=== PATIENT | female | born 1985 | race African-American/Black ===

== ENCOUNTER 2019-05-03 19:02 | Emergency (ER) | payer MEDICARE, MEDICAID ==
[~2019-05-03] VITALS: Ht 152.4 cm; Wt 72.6 kg
[2019-05-03 19:54] LABS: Urine Bacteria NONE SEEN /hpf (None Seen); Urine Blood Negative /uL (Negative); Urine Mucus FEW (None Seen); Urine WBC 1 /hpf (0 - 5)
[2019-05-03] MEDS ORDERED: cefTRIAXone SOD 1,000 MG VL IM ONE (20:45)
[2019-05-03] MEDS ORDERED: PHENAZOPYRIDINE HCL 100 MG TAB PO ONE (20:45)
[2019-05-03] MEDS ORDERED: FLUCONAZOLE 100 MG TAB PO ONE (20:45)
[2019-05-03 20:50] VITALS: BP 109/82
== END 2019-05-03 21:06 | disposition home or self-care (01) ==
LOC: ER 19:02
DX: K04.7 Periapical abscess without sinus (principal)
CPT/HCPCS: 81001; 81025; 96372; 99283; J0696